=== PATIENT | male | born 1990 | race Caucasian/White ===

== ENCOUNTER 2016-08-28 19:40 | Emergency (ER) | payer SELFPAY ==
[~2016-08-28] VITALS: Ht 175.3 cm; Wt 110.1 kg
[~2016-08-28 19:40] MED LIST: AEROECLIPSE1 EACH MC; DOXYCYCLINE HY100 MG PO; FLEXERIL10 MG PO; FLOVENT 44120 INHALA IH; LEVAQUIN500 MG PO; MOTRIN800 MG PO; MUCINEX1200 MG PO; PREDNISONE10 M1 PO; PREDNISONE10 MG PO; PREDNISONE20 MG PO; PROVENTIL,2.5 MG/3 M IH; SUDAFED 12-HOU120 MG PO; TRAMADOL HCL50 MG PO; ULTRAM50 MG PO; VENTOLIN HFA18 GM IH; ZITHROMAX Z-PA250 MG PO
[2016-08-28] MEDS ORDERED: NORCO 5/3251 TABLET PO (23:15)
[2016-08-28 23:49] VITALS: BP 121/74
== END 2016-08-28 23:50 | disposition home or self-care (01) ==
LOC: EME 19:40
DX: S02.40EA Zygomatic fracture, right side, initial encounter for closed fracture (principal); S00.03XA Contusion of scalp, initial encounter; S01.511A Laceration without foreign body of lip, initial encounter; Y04.2XXA Assault by strike against or bumped into by another person, initial encounter; Y93.67 Activity, basketball; Z87.891 Personal history of nicotine dependence
CPT/HCPCS: 70450; 70486; 99281; 99284

== ENCOUNTER 2017-11-06 08:35 | Emergency (ER) | payer OTHER ==
[~2017-11-06] VITALS: Ht 175.3 cm; Wt 110.1 kg
[~2017-11-06 08:35] MED LIST changes: +NORCO 5/3251 TABLET PO
[2017-11-06] MEDS ORDERED: NAPROSYN500 MG PO (09:51)
[2017-11-06] MEDS ORDERED: PEN-VEE K,VEET500 MG PO (09:51)
[2017-11-06 10:24] VITALS: BP 137/82
== END 2017-11-06 10:25 | disposition home or self-care (01) ==
LOC: EME 08:35
DX: K08.89 Other specified disorders of teeth and supporting structures (principal); K02.9 Dental caries, unspecified; K03.81 Cracked tooth; Z88.2 Allergy status to sulfonamides
CPT/HCPCS: 99281; 99283

== ENCOUNTER 2017-11-11 15:41 | Emergency (ER) | payer OTHER ==
[~2017-11-11] VITALS: Ht 175.3 cm; Wt 110.9 kg
[~2017-11-11 15:41] MED LIST changes: +NAPROSYN500 MG PO; +PEN-VEE K,VEET500 MG PO
[2017-11-11] MEDS ORDERED: NORCO 5/3251 TABLET PO (16:57)
[2017-11-11 17:15] VITALS: BP 135/86
== END 2017-11-11 17:16 | disposition home or self-care (01) ==
LOC: EME 15:41
DX: K08.89 Other specified disorders of teeth and supporting structures (principal); Z86.19 Personal history of other infectious and parasitic diseases; Z88.2 Allergy status to sulfonamides
CPT/HCPCS: 99281; 99284